=== PATIENT | female | born 1960 | race African-American/Black ===

== ENCOUNTER → 2019-09-23 14:50 | Outpatient (CLI) | payer BC, SELFPAY ==
--- NOTE | ~2019-09-23 | MM_ITS ---
EXAMINATION: MM screening [facility] BI w naheed HISTORY: Screening mammogram TECHNIQUE: Craniocaudal and mediolateral oblique 3-D tomosynthesis images were obtained and synthetic 2-D images were generated. CAD analysis was submitted and interpreted. COMPARISON: 06/09/2018, 04/13/2017, 04/03/2016, 02/24/2014 BREAST PARENCHYMAL COMPOSITION: There are scattered areas of fibroglandular density. FINDINGS: Stable architectural distortion is seen in the subareolar aspect of both breasts, consisten t with prior excisional biopsies. Also seen is chronic and stable focal asymmetry in the middle third of the outer right breast. There is no evidence of suspicious mass, calcification, or architectural distortion to suggest malignancy in either breast. There has been no suspicious interval change. IMPRESSION: 1. No mammographic evidence of malignancy. 2. Recommend routine screening mammography in one year. BI-RADS Category 2: Benign finding(s). Reviewed, dictated and finalized at location A.
== END ==
PROVIDERS: PCP Family Medicine; Visit Provider Family Medicine
DX: Z12.31 Encounter for screening mammogram for malignant neoplasm of breast (principal)
CPT/HCPCS: 77063; 77067

== ENCOUNTER → 2020-09-25 17:02 | Outpatient (CLI) | payer BC, SELFPAY ==
--- NOTE | ~2020-09-25 | MM_ITS ---
EXAMINATION: MM screening [facility] BI w naheed HISTORY: Screening TECHNIQUE: Craniocaudal and mediolateral oblique 3-D tomosynthesis images were obtained and synthetic 2-D images were generated. CAD analysis was submitted and interpreted. COMPARISON: Comparison to multiple prior studies sequentially, with oldest reviewed study dated 02/06. BREAST PARENCHYMAL COMPOSITION: There are scattered areas of fibroglandular density. FINDINGS: Stable benign-appearing right breast masses. There is no evidence of suspicious mass, calci fication, or architectural distortion to suggest malignancy in either breast. There has been no suspi cious interval change. IMPRESSION: 1. No mammographic evidence of malignancy. 2. Recommend routine screening mammography in one year. BI-RADS Category 2: Benign finding(s). Reviewed, dictated and finalized at location A.
== END ==
PROVIDERS: PCP Family Medicine; Visit Provider Family Medicine
DX: Z12.31 Encounter for screening mammogram for malignant neoplasm of breast (principal)
CPT/HCPCS: 77063; 77067

== ENCOUNTER 2022-03-07 07:08 | Outpatient (CLI) | payer BC, SELFPAY ==
--- NOTE | ~2022-03-07 | MM_ITS ---
EXAMINATION: MM screening [facility] w naheed HISTORY: Screening mammogram TECHNIQUE: Craniocaudal and mediolateral oblique 3-D tomosynthesis images were obtained and synthetic 2-D images were generated. CAD analysis was submitted and interpreted. COMPARISON: 09/25/2020, 09/23/2019, 06/09/2018 bilateral screening mammogram examinations BREAST PARENCHYMAL COMPOSITION: There are scattered areas of fibroglandular density. FINDINGS: Stable small benign right breast masses and occasional bilateral benign calcifications. The re is no evidence of suspicious mass, calcification, or architectural distortion to suggest malignanc y in either breast. There has been no suspicious interval change. IMPRESSION: 1. No mammographic evidence of malignancy. 2. Recommend routine screening mammography in one year. BI-RADS Category 2: Benign finding(s). Reviewed, dictated and finalized at location A. 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
== END 2022-03-07 07:09 ==
PROVIDERS: PCP Family Medicine; Visit Provider Family Medicine
DX: Z12.31 Encounter for screening mammogram for malignant neoplasm of breast (principal)
CPT/HCPCS: 77063; 77067

== ENCOUNTER 2023-04-29 14:53 | Outpatient (CLI) | payer BC, SELFPAY ==
--- NOTE | ~2023-04-29 | MM_ITS ---
EXAMINATION: MM screening [facility] w naheed HISTORY: Screening TECHNIQUE: Craniocaudal and mediolateral oblique 3-D tomosynthesis images were obtained and synthetic 2-D images were generated. CAD analysis was submitted and interpreted. COMPARISON: Comparison to multiple prior studies sequentially, with oldest reviewed study dated 04/03. BREAST PARENCHYMAL COMPOSITION: Not dense: There are scattered areas of fibroglandular density. FINDINGS: There is stable bilateral architectural distortion in the subareolar locations of both ryan sts, consistent with prior excisional biopsies. Stable benign-appearing bilateral breast masses. No n ew masses, calcifications or architectural distortion in either breast to suggest malignancy. IMPRESSION: 1. No mammographic evidence of malignancy. 2. Recommend routine screening mammography in one year. BI-RADS Category 2: Benign finding(s). Reviewed, dictated and finalized at location A. 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
== END 2023-04-29 14:54 ==
LOC: MICIMG 14:54
PROVIDERS: PCP Family Medicine; Visit Provider Family Medicine
DX: Z12.31 Encounter for screening mammogram for malignant neoplasm of breast (principal)
CPT/HCPCS: 77063; 77067

== ENCOUNTER 2023-05-05 02:32 | Emergency (ER) | payer BC, SELFPAY ==
[2023-05-05 02:40] VITALS: BP 175/76; PULSE 76; RESP 14; TEMP 36.3; O2SAT 98
[2023-05-05 02:47] VITALS: BP 183/86; PULSE 69; RESP 12; O2SAT 100
--- NOTE | 2023-05-05 03:08 | ED.GENADULT ---
HPI - General Adult General Chief complaint: Unspecified Stated complaint: I think I'm having a stroke -Mouth getting larger Time Seen by Provider: 05/05/23 02:57 History of Present Illness HPI narrative: This is a 63-year-old female presenting ED with chief complaint of elevated blood pressure. patient's blood pressure was elevated home a 180/80. Patient is on lisinopril 40 mg. Patient has been doing multiple modifications to diet and exercise to help lose weight. She says her motivation says she can not play with her grandchildren watch them grow up. She came to the ED today could she was concerned about her blood pressure being high. She does not have any neurologic symptoms chest pain or difficulty breathing. In fact she is asymptomatic and says she feels very well. She is about to go to the gym. Patient has appointment with her primary care physician at 4:30 p.m. today. patient reports some dryness to her lips and eyes and was concerned that may be related to her blood pressure. Related Data Home Medications Medication Instructions Recorded Confirmed atorvastatin 10 mg tablet 10 mg PO DAILY 04/01/19 sitagliptin phos 100 mg-metformin 1 tablet PO DAILY 04/01/19 ER 1,000 mg tablet,extend rel 24h mp (Janumet XR) triamcinolone acetonide 0.1 % 1 applic topical BID 04/01/19 topical cream Allergies Allergy/AdvReac Type Severity Reaction Status Date / Time No Known Allergies Allergy Unverified 03/28/19 09:26 [facility] Past Medical History Medical History Benign reactive hypertension Diabetic retinopathy Mixed hyperlipidemia Family History Family History Sibling Family history of malignant neoplasm of breast in first degree relative Other Hypertension Social History Social History Smoking status: Never smoker Second hand tobacco smoke exposure: No Alcohol intake: never Substance use: never Substance use type: does not use Living arrangements: with family Occupation/Education: occupation Gender identity (if verbalized by the patient): Female Course Vital Signs Vital signs: Vital Signs Temperature 97.4 F L 05/05/23 02:40 Pulse Rate 76 05/05/23 02:40 Respiratory Rate 14 05/05/23 02:40 Blood Pressure 175/76 H 05/05/23 02:40 Pulse Oximetry 98 05/05/23 02:40 Oxygen Delivery Room Air 05/05/23 02:40 Temperature 97.4 F L 05/05/23 02:40 Pulse Rate 69 05/05/23 02:47 Respiratory Rate 12 05/05/23 02:47 Blood Pressure 183/86 H 05/05/23 02:47 Pulse Oximetry 100 05/05/23 02:47 Oxygen Delivery Room Air 05/05/23 02:40 Medical Decision Making MDM Narrative Medical decision making narrative: -Course: This is a very pleasant woman who is working very hard to take care of herself. She was concerned about her blood pressure. It is elevated on exam here but she is asymptomatic and well appearing. She has close follow-up with her primary care physician later today. Her concerns about dryness to her eyes and lips being related to her blood pressure were addressed. the patient is comfortable going home at this time. Vital Signs Vital Signs: Vital Signs Temperature 97.4 F L 05/05/23 02:40 Pulse Rate 76 05/05/23 02:40 Respiratory Rate 14 05/05/23 02:40 Blood Pressure 175/76 H 05/05/23 02:40 Pulse Oximetry 98 05/05/23 02:40 Oxygen Delivery Room Air 05/05/23 02:40 Temperature 97.4 F L 05/05/23 02:40 Pulse Rate 69 05/05/23 02:47 Respiratory Rate 12 05/05/23 02:47 Blood Pressure 183/86 H 05/05/23 02:47 Pulse Oximetry 100 05/05/23 02:47 Oxygen Delivery Room Air 05/05/23 02:40 Discharge Plan Discharge Clinical Impression: Asymptomatic hypertension Patient Disposition: Home, Self-Care Condition: Stable Instructions: Antibioti
== END 2023-05-05 03:23 | disposition home or self-care (01) ==
PROVIDERS: Emergency Provider Emergency Medicine; PCP Family Medicine
DX: I10 Essential (primary) hypertension (principal); E11.319 Type 2 diabetes mellitus with unspecified diabetic retinopathy without macular edema; E78.2 Mixed hyperlipidemia; Z79.84 Long term (current) use of oral hypoglycemic drugs
CPT/HCPCS: 99281

== ENCOUNTER 2025-03-03 11:12 | Outpatient (CLI) | payer BC, SELFPAY ==
--- NOTE | ~2025-03-03 | DEXA_ITS ---
Bone Density Report Name: THAI BURRIS Age: 64 Sex: Female Ethnicity: White Date of : 1960 Indication: postmenopausal; screening for osteoporosis; Referring Provider: MARCUS CINTRON Study: Bone densitometry was performed. Exam Date: March 03, 2025 Accession number: [id number] Bone Density: Region BMD T-score Z-score Classification AP Spine(L1-L4) 1.071 0.2 2.0 Normal Femoral Neck (Left) 0.757 -0.8 0.7 Normal Total Hip (Left) 0.944 0.0 1.3 Normal Femoral Neck (Right) 0.722 -1.1 0.4 Osteopenia Total Hip (Right) 0.969 0.2 1.5 Normal Total Hip Mean 0.956 0.1 1.4 Normal World Health Organization criteria for BMD impression classify patients as: Normal (T-score at or above -1.0), Osteopenia (T-score between -1.0 and -2.5), or Osteoporosis (T-score at or below -2.5). 10-year Fracture Risk(1): Major Osteoporotic Fracture 3.7% Hip Fracture 0.3% Reported Risk Factors: [place] ([place]), Neck BMD=0.722, BMI=26.3 (1) FRAX(R) Version 3.08. Fracture probability calculated for an untreated patient. Fracture probability may be lower if the patient has received treatment. Clinical Information Provided by Patient: Has used the following medications: Vitamin D Patient maximum height was 62.5 Menopause Age: 49 Does not regularly consume dairy products Onset of menses at age 10 Number of children 2 Impression: The patient has low bone mass, based on the Right Femoral Neck T-score. The patient has an estimated ten-year risk of hip fracture of 0.3% and an estimated ten-year risk of major fracture of 3.7%, based on the WHO FRAX algorithm. Discussion: BONE DENSITY IS LOW AT ONE OR MORE SKELETAL SITES. This patient's lowest T-score is low at one or more skeletal sites. It meets the World Health Organization's (WHO) criteria for ?low bone mass? (T-score between -1.0 and -2.5). The patient's 10-year risk of fracture as calculated by FRAX is less than the threshold where pharmacological therapy is recommended by the National Osteoporosis Foundation (NOF). However, all treatment decisions require clinical judgment and consideration of individual patient factors, including patient preferences, comorbidities, previous drug use, risk factors not captured in the FRAX model (e.g., frailty, falls, vitamin D deficiency, increased bone turnover, interval significant decline in bone density) and possible under or overestimation of fracture risk by FRAX. The patient should follow a healthful lifestyle (good nutrition with adequate calcium and vitamin D, and appropriate weight-bearing exercise). Follow-Up: Consider repeating this study in 2 to 3 years to reassess this patient's status, or sooner if there is some new clinical indication. Reported by: NAY on 03/03/2025 11:33:00 AM. Reviewed, dictated and finalized at location A.
== END 2025-03-03 11:13 | disposition home or self-care (01) ==
LOC: MICIMG 11:13
PROVIDERS: PCP Internal Medicine; Visit Provider Internal Medicine
DX: Z13.820 Encounter for screening for osteoporosis (principal); Z71.3 Dietary counseling and surveillance; E11.9 Type 2 diabetes mellitus without complications; E78.2 Mixed hyperlipidemia; I10 Essential (primary) hypertension; Z78.0 Asymptomatic menopausal state; M85.851 Other specified disorders of bone density and structure, right thigh
CPT/HCPCS: 77080

== ENCOUNTER 2025-03-07 15:55 | Outpatient (CLI) | payer BC, SELFPAY ==
--- NOTE | ~2025-03-07 | MM_ITS ---
EXAMINATION: MM screening [facility] w naheed HISTORY: Screening TECHNIQUE: Craniocaudal and mediolateral oblique 3-D tomosynthesis images were obtained and synthetic 2-D images were generated. CAD analysis was submitted and interpreted. COMPARISON: 2023, 2021, and 2020 BREAST PARENCHYMAL COMPOSITION: There are scattered areas of fibroglandular tissue. FINDINGS: No suspicious masses are seen. There are no suspicious calcifications. No unexplained architectural distortion is seen. There are no skin or nipple abnormalities identified. There is no adenopathy seen on the images submitted. IMPRESSION: No mammographic evidence to suggest malignancy is seen. The patient may return to screening mammography as per ACR guidelines. BI-RADS 1 - Negative. Reviewed, dictated and finalized at location C. 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
== END 2025-03-07 15:56 | disposition home or self-care (01) ==
PROVIDERS: PCP Internal Medicine; Visit Provider Internal Medicine
DX: Z12.31 Encounter for screening mammogram for malignant neoplasm of breast (principal)
CPT/HCPCS: 77063; 77067